=== PATIENT | female | born 1980 | race Caucasian/White ===

== ENCOUNTER 2019-09-29 11:54 | Emergency (ER) | payer OTHER ==
[2019-09-29 12:01] VITALS: BP 146/89; PULSE 73; RESP 18; TEMP 98.3
--- NOTE | 2019-09-29 12:34 | ED ---
Recheck HPI - General Chief Complaint: Recheck/Abnormal Lab/Rx Stated Complaint: Hemoids Time Seen by Provider: 09/29/19 12:05 Source: patient Mode of arrival: ambulatory Limitations: no limitations - History of Present Illness Initial Comments: Patient is a 39-year-old female presenting to emergency Department with complaints of a hemorrhoid. Patient states she doesn't have a history of these after giving . Patient states she was constipated a few days ago and then after having a bowel movement started noticing the hemorrhoid. Patient states she's been trying Preparation H for the last 2 days but states she is continuing to have pain with sitting, itchiness, irritation. She states there is no active bleeding. She denies any fever or chills. She is no further complaints at this time. Upon arrival to the ER, her vitals are stable. - Related Data Previous Rx's Medication Instructions Recorded Hydrocortisone Cream 1 applic TOPICAL BID 7 Days #1 tube 09/29/19 [Hydrocortisone 2.5% Cream] Allergies Allergy/AdvReac Type Severity Reaction Status Date / Time Sulfa (Sulfonamide Allergy Hallucinati Verified 09/29/19 12:01 Antibiotics) ons Review of Systems ROS Statement: Those systems with pertinent positive or pertinent negative responses have been documented in the HPI. ROS Other: All systems not noted in ROS Statement are negative. Past Medical History Additional Past Medical History / Comment(s): endometriosis, diverticulitis History of Any Multi-Drug Resistant Organisms: None Reported Additional Past Surgical History / Comment(s): colonoscopy Past Psychological History: No Psychological Hx Reported Smoking Status: Current every day smoker Past Alcohol Use History: None Reported Past Drug Use History: None Reported General Exam - General Exam Comments Initial Comments: GENERAL: Patient is well-developed and well-nourished. Patient is nontoxic and in no acute distress. HEAD: Atraumatic, normocephalic. EYES: Pupils equal round and reactive to light, extraocular movements intact, sclera anicteric, conjunctiva are normal. Eyelids were unremarkable. ENT: TMs normal, nares patent, oropharynx clear without exudates. Moist mucous membranes. NECK: Normal range of motion, supple without lymphadenopathy or JVD. LUNGS: Unlabored respirations. Breath sounds clear to auscultation bilaterally and equal. No wheezes rales or rhonchi. HEART: Regular rate and rhythm without murmurs, rubs or gallops. ABDOMEN: Soft, nontender, normoactive bowel sounds. No guarding, no rebound. No masses appreciated. Rectal exam: Patient has a nickel-sized external hemorrhoid, no active bleeding. It is not thrombosed. MUSCULOSKELETAL: Normal extremities with adequate strength and normal range of motion, no pitting or edema. No clubbing or cyanosis. NEUROLOGICAL: Normal speech, normal gait. PSYCH: Normal mood, normal affect. SKIN: Warm, Dry, normal turgor, no rashes or lesions noted. Limitations: no limitations Course Vital Signs 09/29/19 11:57 Temperature 98.3 F Pulse Rate 73 Respiratory 18 Rate Blood Pressure 146/89 O2 Sat by Pulse 97 Oximetry Medical Decision Making - Medical Decision Making Patient is a 39-year-old female here with irritation to a hemorrhoid. On rectal exam, patient has a nickel-sized external hemorrhoid, it is not thrombosed. There is no active bleeding. I will prescribe a steroid cream to use twice a day, also recommend witch tristan pads for comfort, and warm showers and baths. I also recommended MiraLAX to help with stool softening. Patient is in agreement with this plan of care. She is stable for discharge. Recommended following up with her PCP. Return parameters were discussed with the patient she verbalized understanding. Disposition Clinical Impression: Hemorrhoids, external without complications Disposition: HOME SELF-CARE Condition: Stable Instructions (If sedation given, give patient instructions): Hemorrhoids (ED) Additional Instructions: Please return to the Emergency Department if symptoms worsen or any other concern. Use steroid cream as prescribed, may also use witch tristan pads that are [id number]-[id number]. Warm baths and showers can also help. Miralex for stool softeners. Follow-up with PCP. Prescriptions: Hydrocortisone Cream [Hydrocortisone 2.5% Cream] 1 applic TOPICAL BID 7 Days #1 tube Is patient prescribed a controlled substance at d/c from ED?: No Referrals: Ricardo Tabares MD [Primary Care Provider] - 1-2 days
== END 2019-09-29 12:49 | disposition home or self-care (01) ==
LOC: EC 11:54
DX: K64.4 Residual hemorrhoidal skin tags (principal); F17.200 Nicotine dependence, unspecified, uncomplicated; Z88.2 Allergy status to sulfonamides
CPT/HCPCS: 99282

== ENCOUNTER → 2022-12-26 | Outpatient (CLI) | payer OTHER ==
[2022-12-26 16:52] LABS: Basophils # (A) 0.06 X 10*3/uL (0.00-0.10); Basophils % (A) 0.9 %; Eosinophils # (A) 0.14 X 10*3/uL (0.04-0.35); Eosinophils % (A) 2.1 %; HCT 45.5 % (37.2-46.3); HGB 15.1 g/dL (12.0-15.0); Lymphocytes # (A) 1.85 X 10*3/uL (0.90-5.00); Lymphocytes % (A) 27.1 %; MCH 32.6 pg (27.0-32.0); MCHC 33.2 g/dL (32.0-37.0); MCV 98.3 FL (80.0-97.0); Mean Platelet Volume 8.8 FL (9.5-12.2); Monocytes # (A) 0.35 X 10*3/uL (0.20-1.00); Monocytes % (A) 5.1 %; NRBC Per 100 WBC 0 X 10*3/uL (0.00-0.01); Neutrophils % (A) 64.5 %; Platelet Count 293 X 10*3/uL (140-440); RBC 4.63 X 10*6/uL (4.10-5.20); RDW 12.8 % (11.5-14.5); WBC 6.82 X 10*3/uL (4.50-10.00)
[2022-12-26 18:33] LABS: Blood Urea Nitrogen 14.7 mg/dL (9.0-27.0); Carbon Dioxide 23.3 mmol/L (21.6-31.8); Chloride 105 mmol/L (96-109); Glucose 81 mg/dL (70-110); Potassium 4.4 mmol/L (3.5-5.5); Sodium 138 mmol/L (135-145)
== END | disposition home or self-care (01) ==
LOC: LABPAT 10:13
PROVIDERS: ATTEND Obstetrics & Gynecology
DX: Z01.812 Encounter for preprocedural laboratory examination (principal); N93.8 Other specified abnormal uterine and vaginal bleeding; N94.6 Dysmenorrhea, unspecified; N94.10 Unspecified dyspareunia; R10.2 Pelvic and perineal pain
CPT/HCPCS: 80051; 82565; 82947; 84520; 85025; 87086

== ENCOUNTER 2023-01-03 05:45 | Day surgery (SDC) | payer OTHER ==
[2022-12-28 11:29] VITALS: BMI 33.6
[2023-01-03] MEDS ORDERED: LACTATED RINGERS 1,000 ML IV SCH (06:02)
[2023-01-03] MEDS ORDERED: ONDANSETRON 4 MG/2 ML VIAL IVP ONE (06:02)
[2023-01-03] MEDS ORDERED: DEXAMETHASONE SOD PHOSPHATE 4 MG/ML 1 ML VIAL IV ONE (06:02)
[2023-01-03] MEDS ORDERED: SCOPOLAMINE 1 MG/72 HR PATCH TRANSDERM ONE (06:33)
[2023-01-03] MEDS ORDERED: LIDOCAINE 1% (10MG/ML) FOR IV START INTRADERMA ONE (06:33)
[2023-01-03] MEDS ORDERED: MIDAZOLAM 2 MG/2 ML VIAL IVP ONE (06:55)
[2023-01-03] MEDS ORDERED: HYDROmorphone 0.5 MG/0.5 ML SYRINGE IVP PRN (07:00)
[2023-01-03] MEDS ORDERED: PROPOFOL 10 MG/ML 20 ML VIAL IV ONE (07:34)
[2023-01-03] MEDS ORDERED: NEOSTIGMINE 1 MG/ML 10 ML VIAL ONE (07:34)
[2023-01-03] MEDS ORDERED: SUCCINYLCHOLINE CHLORIDE 200 MG/10 ML VIAL IV ONE (07:34)
[2023-01-03] MEDS ORDERED: GLYCOPYRROLATE 0.2 MG/ML 2 ML VIAL ONE (07:34)
[2023-01-03] MEDS ORDERED: LIDOCAINE 1% INJ 10MG/ML (20 ML MDV) ONE (07:34)
[2023-01-03] MEDS ORDERED: fentaNYL (PF) 50 MCG/ML 2 ML AMP ONE (07:34)
[2023-01-03] MEDS ORDERED: ROCURONIUM 10 MG/ML (5 ML VIAL) IV ONE (07:34)
[2023-01-03] MEDS ORDERED: MIDAZOLAM 2 MG/2 ML VIAL ONE (07:34)
[2023-01-03] MEDS ORDERED: BUPIVACAINE (PF) 0.25% 30 ML VIAL SQ ONE (08:21)
[2023-01-03] MEDS ORDERED: LACTATED RINGERS 1,000 ML IV ONE ×3 (08:37→11:23)
[2023-01-03] MEDS ORDERED: Acetaminophen-Codeine 300-30mg TAB PO PRN ×2 (09:13)
[2023-01-03] MEDS ORDERED: KETOROLAC 15 MG/ML 1 ML VIAL IVP PRN (09:13)
[2023-01-03] MEDS ORDERED: diphenhydrAMINE 50 MG/ML 1 ML VIAL IVP PRN (09:13)
[2023-01-03] MEDS ORDERED: SIMETHICONE 80 MG CHEWABLE PO PRN (09:13)
[2023-01-03] MEDS ORDERED: METOCLOPRAMIDE 5 MG/ML 2 ML VIAL IVP PRN (09:13)
[2023-01-03] MEDS ORDERED: ONDANSETRON 4 MG/2 ML VIAL IVP PRN (09:13)
--- NOTE | 2023-01-03 09:25 | P.OP ---
Date of Procedure: 01/03/23 Preoperative Diagnosis: #1. Dysfunctional uterine bleeding #2. Dysmenorrhea #3. Dyspareunia #4. History of endometriosis Postoperative Diagnosis: Same Procedure(s) Performed: #1. Da Na robotically assisted laparoscopic hysterectomy with bilateral s alpingectomy #2. Diagnostic cystoscopy Anesthesia: BETTE Surgeon: Rogelio Hernandez Care Assistant #1: Ramya Hurtado Estimated Blood Loss (ml): 125 IV fluids (ml): 800 Urine output (ml): 50 Pathology: other (Uterus and bilateral fallopian tubes) Condition: stable Disposition: PACU Operative Findings: Preoperative pelvic examination demonstrated a 4-5 week slightly anteverted mobile normal shaped uterus with normal adnexa bilaterally. Intraoperatively, these findings were confirmed. There was a small filmy adhesion from the sigmoid colon to the anterior abdominal wall which was lysed intraoperatively. There was noted to be endometriotic powder burn implants throughout the cul-de-sac along the uterosacral ligaments bilaterally. There was no evidence of endometriosis higher in the pelvis. She did have some foreshortening of all of her ligaments in the pelvis possibly from endometriosis. Urine was clear throughout the entire case. The cystoscopic result demonstrated a normal dome of the bladder from both the intra-abdominal aspect and cystoscopic aspect. The bilateral ureters were seen peristalsing with jets from both. Description of Procedure: The patient was prepped and draped in usual fashion after general endotracheal anesthesia was administered by the anesthesiologist. Weighted speculum was placed in the anterior lip of the cervix grasped with a single-tooth tenaculum. Serial dilation was carried out after sounding the patient 8 cm. A [employer] uterine manipulator was placed with a medium cup and affixed to the cervix in standard fashion. A Jewell catheter was in place. Attention was turned to the abdomen where a site was selected approximately 1-2 cm above the umbilicus in the midplane were an 8 mm incision was made in the transverse plane allowing insertion of an 8 mm da Na optical trocar under direct visualization without difficulty. A pneumoperitoneum was then infused and Trendelenburg positioning utilized. The findings are as noted above. A site was selected approximately 10-12 cm lateral to the optical port on the right side and 4 cm inferior where an 8 mm incision was made in the transverse plane allowing insertion of an 8 mm da Na port under direct visualization without difficulty. A myringotomy port was placed in the left lower quadrant. A site was selected approximately equidistant between the left lower quadrant site in the optical site but approximately 8 cm superior to the optical port where a 10 mm incision was made in the transverse plane allowing insertion of a 10 mm library clerical assistant trocar under direct vision station without difficulty. After she in sure in proper port placement, the robot was docked to the patient and I presented to the console. The left arm was loaded with a [place] bipolar cautery forceps in the right arm with a monopolar cautery scissors. The filmy adhesion between the sigmoid colon and the anterior abdominal wall was taken down sharply with the scissors. The left fallopian tube was then dissected from the underlying ovary with cautery followed by scissors using the cautery along the margin. At the level of the uterus, the round ligament and utero-ovarian ligament were cauterized with the [place] and then cut with the monopolar scissors. Once through to the broad ligament, the bladder peritoneum was developed across the midline and the bladder reflected somewhat distally. The uterine vasculature was noted to be very close and was cauterized using the [place] bipolar cautery scissors. Attention was then turned to the right side where similar operations were carried out without difficulty. There was generalized oozing along the way likely secondary to the endometriosis but was ultimately controlled with cautery. Once the uterine vasculature had been cauterized on the right side I returned to the left side to ensure full cautery. Once this had been controlled, the vaginal cuff was opened sharply with the monopolar scissors in the posterior cul-de-sac. The cup was then followed around circumferentially until the uterus was from the patient and removed through the vagina. The scissors were replaced with a laparoscopic suturing device and a stitch of 0 Stratafix suture pass in the abdomen. The suture was utilized to close the vaginal cuff in standard fashion from margin to margin with 2 stitches returned on the second side. The scope was left in place but the remainder of the incision mentation removed after thorough suction irrigation demonstrated excellent hemostasis. I then returned to the patient, remove the Jewell catheter, and placed a diagnostic cystoscope. After filling the bladder with sterile water, it was noted that the dome of the bladder was damaged from ne ither the cystoscopic perspective nor the laparoscopic perspective. The remainder of the abdominal incision mentation was then removed, the robot undocked and closure pursued. Cystoscopically, the bilateral ureteral hemlocks were noted to produce jets demonstrating normal peristalsis. All instrumentation was then removed and the Jewell catheter replaced. The abdominal skin incisions were closed with interrupted subcuticular stitches of 4-0 Vicryl followed by half-inch Steri-Strips placed with Mastisol. The 4 incisions were equally infused with a total of 10 mL of half percent Marcaine without epinephrine. Estimated blood loss for the case was approximately 125 mL. There were no complications. All sponge, instrument, and needle counts were correct. The patient tolerated the procedure well and proceeded to the recovery room in stable condition.
[2023-01-03] MEDS: LACTATED RINGERS 1,000 ML IV SCH (12:01)
[2023-01-03 18:19] VITALS: RESP 18
[2023-01-04] MEDS: IBUPROFEN 600 MG TAB PO PRN ×2 (01:02→07:48)
[2023-01-04] MEDS: LACTATED RINGERS 1,000 ML IV SCH (01:06)
[2023-01-04 04:28] LABS: Basophils % (A) 0 %; Eosinophils # (A) 0.1 k/uL (0-0.7); Eosinophils % (A) 1 %; HCT 35.5 % (34.0-46.0); HGB 11.9 gm/dL (11.4-16.0); Lymphocytes # (A) 1.9 k/uL (1.0-4.8); Lymphocytes % (A) 22 %; MCHC 33.6 g/dL (31.0-37.0); MCV 98.1 fL (80.0-100.0); Mean Platelet Volume 7.2; Monocytes # (A) 0.6 k/uL (0-1.0); Monocytes % (A) 6 %; Neutrophils # (A) 5.9 k/uL (1.3-7.7); Neutrophils % (A) 69 %; Platelet Count 235 k/uL (150-450); RBC 3.62 m/uL (3.80-5.40); RDW 12.2 % (11.5-15.5); WBC 8.6 k/uL (3.8-10.6)
[2023-01-04] MEDS: ACETAMINOPHEN TAB 325 MG TAB PO PRN ×2 (05:49→10:56)
--- NOTE | 2023-01-04 07:04 | P.PN ---
Progress Note - Text Progress Note Date: 01/04/23 (604) Anesthesia Postop day 1 Subjective: Status Post robotic vaginal hysterectomy with Duramorph. Patient seen and examined. Doing well without complaint. VAS 1 out of 10. No nausea or vomiting. Mild pruritus tolerable.. Afebrile. Gross lower extremity strength intact. Still complaining of mild lightheadedness but has decreased. Patient has been able to ambulate without difficulty. Without apparent anesthetic complications. Objective: Vital signs reviewed Heart: Regular Rate Lungs: Good chest excursion Abdomen: Appears nondistended Assessment: Status post robotic vaginal hysterectomy with Duramorph postop day 1 Plan: Continue current care with your medical management. Anticipated and the Duramorph section around time today. You may see increased pain needs around this time.
[2023-01-04 08:54] VITALS: BP 102/66; PULSE 66; TEMP 97.9
--- NOTE | 2023-01-04 09:28 | P.DS ---
Providers Expected date of discharge: 01/04/23 Attending physician: Rogelio Hernandez Primary care physician: Ricardo Nicole Kut - Discharge Diagnosis(es) (1) Dysfunctional uterine bleeding Current Visit: Yes Status: Acute (2) Dysmenorrhea Current Visit: Yes Status: Acute (3) Dyspareunia Current Visit: Yes Status: Acute (4) Endometriosis Current Visit: Yes Status: Acute Hospital Course: The patient is a 42-year-old woman with a long-standing history of dysfunctional uterine bleeding, significant dysmenorrhea as well as dyspareunia. She has documented history of endometriosis seen at laparoscopy in the past. She's had multiple attempts at medical management and has failed all options and has now requested definitive therapy with hysterectomy. She therefore was taken the ope rating room where she underwent da Na robotically assisted laparoscopic hysterectomy and bilateral salpingectomy and diagnostic cystoscopy and an incompetent fashion. She was noted intraoperatively to have endometriosis primarily in the cul-de-sac and on the uterosacral ligaments bilaterally. The ovaries were normal and therefore left in place. Following the procedure, the ureters were noted to be peristalsing I visualizing the ureteral hillocks and the bladder wasn't damaged. Her postoperative course was complicated on the day of surgery by moderate to significant nausea and low blood pressure likely secondary to anesthetic concerns. This did resolve by the morning of postoperative day #1 at which time she was tolerating regular diet and deemed stable for discharge. She was discharged home to follow-up in the office in 2 weeks for incision checks and 8 weeks routinely. Discharge instructions included calling for any significantly increased bleeding, fever, abdominal pain, urinary complaints, GI complaints, or anything also concerned her. She was additionally instructed to have nothing in the vagina for at least 8 weeks time to include intercourse and to abstain from driving until off of all pain medications or 2 weeks' time, whichever came first. She understood all of her instructions and agrees follow up as noted above. Discharge medications included any normal home medications as well as [id number] analgesic pain medications. She has declined narcotic pain medications as she reports that they typically make her nauseated. Discharge hemoglobin and hematocrit were 11.9 and 35.5 respectively. Procedures: #1. Da Na robotically assisted laparoscopic hysterectomy #2. Diagnostic cystoscopy Patient Condition at Discharge: Stable Plan - Discharge Summary Discharge Rx Participant: Yes New Discharge Prescriptions: No Action Ibuprofen [Motrin] 600 mg PO Q6HR PRN PRN Reason: Pain Acetaminophen [Tylenol Extra Strength] 500 - 1,000 mg PO Q4-6H PRN PRN Reason: Pain Discharge Medication List Acetaminophen [Tylenol Extra Strength] 500 - 1,000 mg PO Q4-6H PRN 12/28/22 [History] Ibuprofen [Motrin] 600 mg PO Q6HR PRN 12/28/22 [History] Follow up Appointment(s)/Referral(s): Rogelio Hernandez MD [STAFF PHYSICIAN] - 1 Week Discharge Disposition: HOME SELF-CARE
--- NOTE | 2023-01-10 12:29 | P.ANPRN ---
Procedure Note - Anesthesia - Epidural/Spinal Spinal Time Out Performed: Yes Date of Procedure: 01/03/23 Procedure Start Time: 06:54 Procedure Stop Time: 07:00 Location of Patient: PreOp Indication: Acute Post-Operative Pain Sedation Type: Sedate with meaningful contact maintained Preparation: Sterile Prep Position: Sitting Needle Guage: 25 Blood Aspirated: No Pain Paresthesia on Injection Noted: No Events: Uneventful and Well Tolerated (Duramorph 300 mics plus fentanyl 25 mics injected into the intrathecal space)
== END 2023-01-04 11:10 | disposition home or self-care (01) ==
LOC: OR 05:45 → 4FBP 09:18 → OR 01-04 11:10
PROVIDERS: ATTEND Obstetrics & Gynecology
DX: D25.1 Intramural leiomyoma of uterus (principal); N80.00 Endometriosis of the uterus, unspecified
CPT/HCPCS: 58573; S2900; 85025; 88307